=== PATIENT | male | born 1960 | race Caucasian/White ===

== ENCOUNTER → 2023-06-07 11:08 | Outpatient (REF) | payer BC, SELFPAY | LOC: DHCBC/DCA 11:08 | PROVIDERS: ATTENDING PHYSICIAN Internal Medicine; FAMILY PHYSICIAN Family Medicine | DX: R94.31 Abnormal electrocardiogram [ECG] [EKG] (principal) | CPT/HCPCS: 78452; 93017; A9500; J2785 ==

== ENCOUNTER → 2023-06-13 13:23 | Outpatient (REF) | payer BC, SELFPAY | LOC: DHCBC MAIN 13:23 | PROVIDERS: ATTENDING PHYSICIAN Internal Medicine; FAMILY PHYSICIAN Family Medicine | DX: R01.1 Cardiac murmur, unspecified (principal) | CPT/HCPCS: 93306 ==

== ENCOUNTER → 2023-08-09 10:42 | Outpatient (REF) | payer BC, SELFPAY | LOC: RAD 10:42 | PROVIDERS: ATTENDING PHYSICIAN Internal Medicine; FAMILY PHYSICIAN Family Medicine | DX: F17.210 Nicotine dependence, cigarettes, uncomplicated (principal) | CPT/HCPCS: 76770 ==

== ENCOUNTER → 2023-09-05 07:28 | Outpatient (REF) | payer BC, SELFPAY | LOC: EMG 07:28 | PROVIDERS: ATTENDING PHYSICIAN Physical Medicine & Rehabilitation | DX: R29.898 Other symptoms and signs involving the musculoskeletal system (principal); R20.0 Anesthesia of skin | CPT/HCPCS: 95886; 95909 ==

== ENCOUNTER 2024-03-21 06:25 | Inpatient (IN) | payer BC, SELFPAY ==
[2024-03-19 14:14] VITALS: BMI 29.6
[2024-03-19 15:23] LABS: Hematocrit 43.2 % (39.0-52.0); Hemoglobin 14.9 g/dL (13.0-18.0); Mean Corp Hgb Conc. 34.5 g/dL (33.0-37.0); Mean Corpuscular Hgb 33.9 pg (27.0-31.0); Mean Corpuscular Volume 98.2 fL (80.0-94.0); Mean Platelet Volume 9.8 fL (7.4-10.4); Platelet Count 222 10^3/uL (130-400); Red Cell Dist. Width 12.1 % (11.5-14.5); White Blood Cell Count 9.8 10^3/uL (4.8-10.8)
[2024-03-19 15:24] LABS: ALT (SGPT) 63 U/L (0-50); AST (SGOT) 87 U/L (17-59); Albumin 4.7 g/dl (3.5-5.0); Alkaline Phosphatase 83 U/L (38-126); Blood Urea Nitrogen 11 mg/dl (9-20); Calcium 9.4 mg/dl (8.4-10.2); Carbon Dioxide 28 mmol/L (22-30); Chloride 100 mmol/L (98-107); Estimated Creatinine Clearance 105 ml/min; Glucose 96 mg/dl (70-99); Potassium 4.5 mmol/L (3.5-5.1); Sodium 137 mmol/L (135-145); Total Bilirubin 0.5 mg/dl (0.2-1.3); Total Protein 7.2 g/dl (6.3-8.2); eGFR > 60.00
[2024-03-21] VITALS (14 sets, daily range): BP systolic 98–171; BP diastolic 65–97; BMI 29.6
[2024-03-21] MEDS: CELEBREX 200 MG PO (07:05)
[2024-03-21] MEDS: SKELAXIN 800 MG PO ×3 (07:05→23:26)
[2024-03-21] MEDS: TYLENOL 1000 MG PO ×3 (07:06→23:36)
[2024-03-21] MEDS: LYRICA 150 MG PO (07:06)
[2024-03-21] MEDS: NORMOSOL-R/PLASMALYTE-A 1000 IV ×4 (07:06→20:00)
--- NOTE | 2024-03-21 07:55 | W.DS.TRANS ---
Addendum entered and electronically signed by Marycruz Guevara PA-C 03/22/24 10:06:
INSTRUCTED TO STOP TYLENOL DUE TO ELEVATED TRANSAMINASE
Original Note:
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
-
Discharge Instructions:
Sleep Apnea Risk Intermediate
Discharge Diagnosis/Procedures ACDF 03/21/24
Diet As tolerated
Activity No strenuous activity
Driving Restrictions No driving
Instructions:
Stand-Alone Forms: [facility] D/C Inst.
Changes to Home Medications: Yes
Discharge Medications:
DC Medications w/original date entered in [employer]
levothyroxine 175 mcg tablet (Synthroid) 175 mcg PO DAILY 03/16/24
multivitamin 1 tab PO DAILY 03/16/24
rosuvastatin 10 mg tablet 10 mg PO DAILY 03/16/24
aspirin 81 mg tablet,delayed release 81 mg PO DAILY 03/19/24
cholecalciferol (vitamin D3) 25 mcg (1,000 unit) capsule (Vitamin D3) 25 mcg PO DAILY 03/19/24
cyanocobalamin (vitamin B-12) 500 mcg tablet (Vitamin B-12) 500 mcg PO DAILY 03/19/24
lisinopril 20 mg tablet 20 mg PO DAILY 03/19/24
omega 8-gbs-cwa-fish oil 1,000 mg (120 mg-180 mg) capsule (Fish Oil) 2 cap PO DAILY 03/19/24
Saccharomyces boulardii 250 mg capsule (Florastor) 250 mg PO BID #1 cap 03/21/24
acetaminophen 325 mg tablet (Tylenol) 650 mg (2 x 325 mg) PO QID #1 tab 03/21/24
cephalexin 500 mg capsule 500 mg PO QID infection prevention #20 caps 03/21/24
cyclobenzaprine 5 mg tablet 5 mg PO BID muscle pain/sleep #30 tabs 03/21/24
dexamethasone 4 mg tablet 4 mg PO BID inflammation #6 tabs 03/21/24
diphenhydramine 25 mg-acetaminophen 500 mg tablet (Tylenol PM Extra Strength) 1 tab PO HS PRN sleep 03/21/24
docusate sodium 100 mg capsule (Colace) 100 mg PO BID stool softner #1 cap 03/21/24
gabapentin 300 mg capsule 300 mg PO HS sleep/pain #10 caps 03/21/24
magnesium hydroxide 400 mg/5 mL oral suspension (Milk of Magnesia) 30 ml PO HS PRN Constipation #1 mL 03/21/24
ondansetron 4 mg disintegrating tablet 4 mg PO Q6H PRN n/v #20 tabs 03/21/24
oxycodone 5 mg tablet 5 mg PO Q6H PRN 1 tab moderate pain, 2 tabs severe pain #30 tabs 03/21/24
sennosides 8.6 mg tablet (Senokot) 17.2 mg (2 x 8.6 mg) PO BID laxative #2 tabs 03/21/24
Home Medication Changes
cephalexin 500 mg capsule 500 mg PO QID infection prevention #20 caps 03/21/24
cyclobenzaprine 5 mg tablet 5 mg PO BID muscle pain/sleep #30 tabs 03/21/24
dexamethasone 4 mg tablet 4 mg PO BID inflammation #6 tabs 03/21/24
diphenhydramine 25 mg-acetaminophen 500 mg tablet (Tylenol PM Extra Strength) 1 tab PO HS PRN sleep 03/21/24
docusate sodium 100 mg capsule (Colace) 100 mg PO BID stool softner #1 cap 03/21/24
gabapentin 300 mg capsule 300 mg PO HS sleep/pain #10 caps 03/21/24
magnesium hydroxide 400 mg/5 mL oral suspension (Milk of Magnesia) 30 ml PO HS PRN Constipation #1 mL 03/21/24
ondansetron 4 mg disintegrating tablet 4 mg PO Q6H PRN n/v #20 tabs 03/21/24
oxycodone 5 mg tablet 5 mg PO Q6H PRN 1 tab moderate pain, 2 tabs severe pain #30 tabs 03/21/24
sennosides 8.6 mg tablet (Senokot) 17.2 mg (2 x 8.6 mg) PO BID laxative #2 tabs 03/21/24
Pending Results: No
[2024-03-21] MEDS: ANCEF IV (08:37)
[2024-03-21] MEDS: DILAUDID 0.5 MG IV ×2 (10:38→10:45)
--- NOTE | 2024-03-21 14:35 | PTCARENOTE ---
Patient admitted from [facility] C4-C7 ACDF.The patient is alert and oriented x3.He reports his pain at a 5 out of 10.The dressing on his right neck is intact without any drainage.neurovascular assessment is within normal limits and ongoing.Vital
signs are stable.The patient is in his bed with the call brantley in reach.
[2024-03-21] MEDS: COLACE 100 MG PO ×2 (16:14→20:05)
[2024-03-21] MEDS: CRESTOR 10 MG PO (16:14)
[2024-03-21] MEDS: ULTRAM 50 MG PO ×3 (16:14→23:28)
[2024-03-21] MEDS: SENOKOT 17.2 MG PO ×2 (16:14→20:05)
[2024-03-21] MEDS: ANCEF 5 IV ×2 (16:15→23:26)
[2024-03-21] MEDS: LYRICA 75 MG PO (20:00)
[2024-03-22 03:00] VITALS: BP 141/79
[2024-03-22] MEDS: ULTRAM 50 MG PO ×2 (03:18→08:03)
[2024-03-22] MEDS: NORMOSOL-R/PLASMALYTE-A 1000 IV (03:20)
[2024-03-22] MEDS: SYNTHROID 175 MCG PO (05:04)
[2024-03-22] MEDS: TYLENOL 1000 MG PO (05:42)
[2024-03-22 07:28] VITALS: BP 151/87
--- NOTE | 2024-03-22 07:49 | W.DS.TRANS ---
DC Summary - [employer]
-
Discharge Instructions:
Sleep Apnea Risk Intermediate
Discharge Diagnosis/Procedures ACDF 03/21/24
Diet As tolerated
Activity No strenuous activity
Driving Restrictions No driving
Instructions:
Stand-Alone Forms: [facility] Cervical D/C Inst.
Changes to Home Medications: No
Discharge Medications:
DC Medications w/original date entered in [email or web address]
levothyroxine 175 mcg tablet (Synthroid) 175 mcg PO DAILY 03/16/24
multivitamin 1 tab PO DAILY 03/16/24
rosuvastatin 10 mg tablet 10 mg PO DAILY 03/16/24
aspirin 81 mg tablet,delayed release 81 mg PO DAILY 03/19/24
cholecalciferol (vitamin D3) 25 mcg (1,000 unit) capsule (Vitamin D3) 25 mcg PO DAILY 03/19/24
cyanocobalamin (vitamin B-12) 500 mcg tablet (Vitamin B-12) 500 mcg PO DAILY 03/19/24
lisinopril 20 mg tablet 20 mg PO DAILY 03/19/24
omega 8-hnw-kpd-fish oil 1,000 mg (120 mg-180 mg) capsule (Fish Oil) 2 cap PO DAILY 03/19/24
Saccharomyces boulardii 250 mg capsule (Florastor) 250 mg PO BID #1 cap 03/21/24
acetaminophen 325 mg tablet (Tylenol) 650 mg (2 x 325 mg) PO QID #1 tab 03/21/24
cephalexin 500 mg capsule 500 mg PO QID infection prevention #20 caps 03/21/24
cyclobenzaprine 5 mg tablet 5 mg PO BID muscle pain/sleep #30 tabs 03/21/24
dexamethasone 4 mg tablet 4 mg PO BID inflammation #6 tabs 03/21/24
diphenhydramine 25 mg-acetaminophen 500 mg tablet (Tylenol PM Extra Strength) 1 tab PO HS PRN sleep 03/21/24
docusate sodium 100 mg capsule (Colace) 100 mg PO BID stool softner #1 cap 03/21/24
gabapentin 300 mg capsule 300 mg PO HS sleep/pain #10 caps 03/21/24
magnesium hydroxide 400 mg/5 mL oral suspension (Milk of Magnesia) 30 ml PO HS PRN Constipation #1 mL 03/21/24
ondansetron 4 mg disintegrating tablet 4 mg PO Q6H PRN n/v #20 tabs 03/21/24
oxycodone 5 mg tablet 5 mg PO Q6H PRN 1 tab moderate pain, 2 tabs severe pain #30 tabs 03/21/24
sennosides 8.6 mg tablet (Senokot) 17.2 mg (2 x 8.6 mg) PO BID laxative #2 tabs 03/21/24
Home Medication Changes
Pending Results: No
--- NOTE | 2024-03-22 07:49 | W.PN.SP ---
Today's Communication / Plan
-
s/p acdf
PT
D/c
Subjective / Objective
Subjective Data
Pt overall doing as expected
A little hoarse
DEnies weakness
Objective Data
Vital Signs
Temp Pulse Resp BP Pulse Ox
97.6 F 74 12 141/79 95
03/22/24 03:00 03/22/24 03:00 03/22/24 03:00 03/22/24 03:00 03/22/24 03:00
Intake and Output
03/21/24 03/22/24 03/23/24
06:59 06:59 06:59
Intake Total 2600 / 2600
Output Total 1200 / 1200
Balance 1400 / 1400
Intake:
Oral fluids 900 / 900
IV fluids (Total) 1700 / 1700
Output:
Urine, Voided 1200 / 1200
Lab Data
03/19/24 13:50
03/19/24 13:50
Physical Exam
-
MOving both UE with good strength
[2024-03-22] MEDS: CRESTOR 10 MG PO (08:02)
[2024-03-22] MEDS: COLACE 100 MG PO (08:02)
[2024-03-22] MEDS: SENOKOT 17.2 MG PO (08:02)
[2024-03-22] MEDS: SKELAXIN 800 MG PO (08:02)
[2024-03-22] MEDS: LYRICA 75 MG PO (08:03)
--- NOTE | 2024-03-22 10:02 | W.PN.ORTHO ---
Today's Communication / Plan
-
d/c
Assessment
.
Dressing:
Clean, dry and intact.
Plan
.
Surgery / Date: C4-7 ACDF
Activity:
Out of bed.
PT/OT
Discharge Plan: Home
Subjective
.
.:
Patient resting comfortably.
Vital Signs and Labs
.
Vital Signs and Labs:
Lab Results
03/19/24 13:50
03/19/24 13:50
Temp Pulse Resp BP Pulse Ox
97.6 F 72 14 151/87 96
03/22/24 07:28 03/22/24 07:28 03/22/24 07:28 03/22/24 08:03 03/22/24 09:45
Physical Exam
-
HEENT: No pallor, cyanosis, or jaundice. Throat clear.
NECK: Supple. No JVD.
RESPIRATORY: Lungs clear to auscultation.
CVS: S1, S2 normal. RRR.� No murmur, rub or gallop.
ABDOMEN: Soft, non-tender. No distension. BS+/normal.
EXTREMITIES: strength equal, no calf pain with palpation
DETENTION WORKER: AOx3. No focal deficits. requirements manager grossly intact
--- NOTE | 2024-03-22 10:24 | CM ---
Met with pt at bedside
Pt reports he lives with his in a 1 story home; 3 steps to enter, FF set-up
Independent at baseline, employed , drives
DME - oxygen - uses for cluster Headaches - unsure of supplier
SNF/HH - denies past hx
Has ride at discharge
PCP - Antonio Kay
Pharm - [facility]
Plan - anticipate home no needs
[2024-03-22 10:45] VITALS: BP 173/91; PULSE 86; O2SAT 97
[2024-03-22 10:59] VITALS: BP 152/85
== END 2024-03-22 12:41 | disposition home or self-care (01) | DRG 473 ==
LOC: 2 SOUTH 06:25
PROVIDERS: ADMITTING PHYSICIAN Orthopaedic Surgery Orthopaedic Surgery of the Spine; FAMILY PHYSICIAN Family Medicine
PROC: 01N10ZZ Release Cervical Nerve, Open Approach (ICD-10-PCS; 2024-03-21)
PROC: 0RB30ZZ Excision of Cervical Vertebral Disc, Open Approach (ICD-10-PCS; 2024-03-21)
PROC: 0RG20A0 Fusion of 2 or more Cervical Vertebral Joints with Interbody Fusion Device, Anterior Approach, Anterior Column, Open Approach (ICD-10-PCS; 2024-03-21)
DX: M48.02 Spinal stenosis, cervical region (principal); M50.121 Cervical disc disorder at C4-C5 level with radiculopathy; E78.2 Mixed hyperlipidemia; I35.8 Other nonrheumatic aortic valve disorders; E03.9 Hypothyroidism, unspecified; I10 Essential (primary) hypertension; K21.9 Gastro-esophageal reflux disease without esophagitis; R73.03 Prediabetes; E66.09 Other obesity due to excess calories; Z87.891 Personal history of nicotine dependence; Z79.82 Long term (current) use of aspirin; Z79.890 Hormone replacement therapy; Z68.29 Body mass index [BMI] 29.0-29.9, adult
CPT/HCPCS: 36415; 72020; 80053; 85027; 87070; 93005; 97162; 97166; 97530; 97535; C1713

== ENCOUNTER → 2024-08-13 14:00 | Outpatient (REF) | payer OTHER, SELFPAY | LOC: HWRAD 14:00 | PROVIDERS: ATTENDING PHYSICIAN Family Medicine | DX: Z87.891 Personal history of nicotine dependence (principal) | CPT/HCPCS: 71271 ==

== ENCOUNTER → 2025-02-04 12:38 | Outpatient (REF) | payer OTHER, SELFPAY | LOC: HWRAD 12:38 | PROVIDERS: ATTENDING PHYSICIAN Family Medicine | DX: R91.8 Other nonspecific abnormal finding of lung field (principal) | CPT/HCPCS: 71250 ==

== ENCOUNTER 2025-02-16 05:25 | Emergency (ER) | payer OTHER, MEDICARE, SELFPAY ==
[2025-02-16 05:43] VITALS: BP 180/106
[2025-02-16 06:13] LABS: Hematocrit 41.6 % (39.0-52.0); Hemoglobin 14.4 g/dL (13.0-18.0); Mean Corp Hgb Conc. 34.6 g/dL (33.0-37.0); Mean Corpuscular Volume 97.7 fL (80.0-94.0); Nucleated Red Blood Cells % 0 % (-); Platelet Count 146 10^3/uL (130-400); Red Cell Dist. Width 13.1 % (11.5-14.5)
[2025-02-16 06:26] LABS: ALT (SGPT) 24 U/L (0-50); AST (SGOT) 43 U/L (17-59); Albumin 4.5 g/dl (3.5-5.0); Alkaline Phosphatase 88 U/L (38-126); Blood Urea Nitrogen 8 mg/dl (9-20); Calcium 9.1 mg/dl (8.4-10.2); Carbon Dioxide 25 mmol/L (22-30); Chloride 101 mmol/L (98-107); Glucose 158 mg/dl (70-99); Potassium 4.1 mmol/L (3.5-5.1); Sodium 134 mmol/L (135-145); Total Protein 7.3 g/dl (6.3-8.2); eGFR > 60.00
[2025-02-16 06:35] LABS: COVID-19 Antigen Negative (Negative)
[2025-02-16 06:36] LABS: Troponin I 0.012 ng/ml
[2025-02-16 08:37] VITALS: BMI 29.3
--- NOTE | 2025-02-16 08:37 | ED.GENMED ---
History of Present Illness
General
Chief Complaint: Cold/Flu/URI Symptoms
Time Seen by Provider: 02/16/25 08:27
History of Present Illness
History of Present Illness:
64-year-old male with history of hypertension and hyperlipidemia presents to the emergency department for evaluation of cough, congestion, and fever for the past 3 days. Denies chest pain or shortness of breath. Cough is generally dry. No history
of lung disease. Non-smoker.
Review of Systems
Review of Systems
Allergies reviewed?: Yes
All Other Systems: ROS reviewed and negative except as documented in HPI and ROS
Phy Exam
Physical Exam
Physical Exam:
GEN: Well appearing, NAD, WDWN
HEENT: Oral mucosa moist, no scleral icterus
Cardiac: Regular rate and rhythm, no murmur
Lung: No respiratory distress, no tachypnea, lungs clear to auscultation
MSK: No gross deformity or injuries
Skin: Good color, no pallor or jaundice, no rashes
Neuro: AO x3, moves all extremities freely
Psych: Calm, cooperative
Course
Orders/Labs/Results
Orders:
Orders
02/16/25 05:51
Electrocardiogram (*1) Urgent
Reason for Study: Other
Other Reason for Exam: Respiratory Distress
Cardiac Monitoring- Treatment ONCE
EKG- Treatment ONCE
IV Insert/Care/Rem.- Treatment PRN
CR Chest - 2 Views Urgent
Comment:
Reason For Exam: respiratory distress
O2 Therapy [RESP] Urgent
Titrate/Wean O2 to maintain O2 sat greater than (%): 93
Special Instructions: TO MAINTAIN CONTINUOUS O2 SATS >/= 93%
Pulse Ox/cont/shift [RESP] Urgent
Quantity: 1
Special Instructions: continuous pulse ox
02/16/25 06:03
COVID-19 Antigen Urgent
Source: Nasal Swab
Complete Blood Count/With Diff Urgent
Comprehensive Metabolic Panel Urgent
NT-proBNP Urgent
Troponin I Urgent
Influenza A+B Rapid Molecular Urgent
NIRAV Source: Nasal Swab
Specimen Description:
Abnormal Lab Results
02/16/25
06:03
RBC 4.26 L 10^6/uL
(4.70-6.10)
MCV 97.7 H fL
(80.0-94.0)
MCH 33.8 H pg
(27.0-31.0)
Absolute Lymphs (auto) 0.6 L 10^3/uL
(1.2-3.4)
Absolute Monos (auto) 0.7 H 10^3/uL
(0.1-0.6)
Lymphocytes % 10.3 L %
(20.5-51.1)
Monocytes % 12.7 H %
(1.7-9.3)
Sodium 134 L mmol/L
(135-145)
BUN 8 L mg/dl
(9-20)
Glucose 158 H mg/dl
(70-99)
02/16/25 06:03
02/16/25 06:03
Vital Signs
Initial and Last Documented VS:
Initial Vital Signs
Temp Pulse Resp BP Pulse Ox
98.7 F 92 20 180/106 93
02/16/25 05:43 02/16/25 05:43 02/16/25 05:43 02/16/25 05:43 02/16/25 05:43
Last Documented Vital Signs
Temp Pulse Resp BP Pulse Ox
98.7 F 92 20 180/106 93
02/16/25 05:43 02/16/25 05:43 02/16/25 05:43 02/16/25 05:43 02/16/25 08:39
MDM/Problems Addressed
MDM/Problems Addressed:
Patient vital signs are normal. He is positive for influenza A, chest x-ray without evidence of infiltrate. Labs are reassuring. Outside the reasonable treatment window for antivirals and thus will recommend supportive care, ED return parameters
discussed
*Pulse Oximetry
SaO2: 93
Oxygen Mode of Delivery: Room air
Patient hypoxic: no
*Critical Care Note
Total Time (30-74mins, 75-104mins- exclusive of procedures): Not Applicable
ED Attending Note
-
Portions of this chart may have been created with voice recognition software.� Occasional wrong word or��sound alike� substitutions may have occurred due to the inherent limitations of voice recognition software.
Discharge Plan
Departure
Patient Disposition: Home (Routine Discharge)
Date of Disposition: 02/16/25
Time of Disposition: 08:38
Patient with high blood pressure during this ER visit?: No
Discharge Problem:
Influenza A
Instructions: Flu in adults - ED (DC)
Prescriptions:
New
codeine-guaifenesin 10-100 mg/5 mL liquid
5 - 10 ml PO Q6H PRN (Reason: Cough) Qty: 120 0RF
No Action
multivitamin Tablet
1 tab PO DAILY
rosuvastatin 10 mg Tablet
10 mg PO DAILY
levothyroxine [Synthroid] 175 mcg Tablet
175 mcg PO DAILY
lisinopril 20 mg Tablet
20 mg PO DAILY
aspirin 81 mg Tablet,Delayed Release (Dr/Ec)
81 mg PO DAILY
cyanocobalamin (vitamin B-12) [Vitamin B-12] 500 mcg Tablet
500 mcg PO DAILY
cholecalciferol (vitamin D3) [Vitamin D3] 25 mcg (1,000 unit) Capsule
25 mcg PO DAILY
omega 8-yph-koz-fish oil [Fish Oil] 1,000 (120-180) mg Capsule
2 cap PO DAILY
diphenhydramine-acetaminophen [Tylenol PM Extra Strength] 25-500 mg Tablet
1 tab PO HS PRN (Reason: sleep)
sennosides [Senokot] 8.6 mg tablet
17.2 mg PO BID Qty: 2 0RF
magnesium hydroxide [Milk of Magnesia] 400 mg/5 mL suspension
30 ml PO HS PRN (Reason: Constipation) Qty: 1 0RF
cephalexin 500 mg capsule
500 mg PO QID Qty: 20 0RF
dexamethasone 4 mg tablet
4 mg PO BID Qty: 6 0RF
Rx Instructions:
take with food
post-op use only
docusate sodium [Colace] 100 mg capsule
100 mg PO BID Qty: 1 0RF
gabapentin 300 mg capsule
300 mg PO HS Qty: 10 0RF
ondansetron 4 mg tablet,disintegrating
4 mg PO Q6H PRN (Reason: n/v) Qty: 20 0RF
Rx Instructions:
take 1/2h b/f pain med if recurrent nausea
allow to dissolve in mouth w/o water
oxycodone 5 mg tablet
5 mg PO Q6H PRN (Reason: 1 tab moderate pain, 2 tabs severe pain) Qty: 30 0RF
Rx Instructions:
Ongoing therapy
cyclobenzaprine 5 mg tablet
5 mg PO BID Qty: 30 0RF
Saccharomyces boulardii [Florastor] 250 mg capsule
250 mg PO BID Qty: 1 0RF
Referrals:
Antonio Kay DO [Family Provider, Family Practice]
Stand Alone Forms: Return to Work
Interventions
Interventions:
*General Assessment Last Done: 02/16/25 05:43
*Neglect/Abuse Screening Last Done: 02/16/25 05:43
*ED COVID-19 Vaccine History Last Done: 02/16/25 05:43
*ED Influenza Vaccine History Last Done: 02/16/25 05:43
[facility] Fall Risk Assessment Tool Last Done: 02/16/25 08:37
*Risk Screen - Suicide (C-SSRS) Last Done: 02/16/25 08:30
*Nursing Disposition Last Done: 02/16/25 08:30
ED- Pulmonary Assessment Last Done: 02/16/25 08:37
Discharge Date and Time
Discharge Date/Time: 02/16/25 08:50
Print Language: WOLOF
== END 2025-02-16 08:50 | disposition home or self-care (01) ==
LOC: EMR 05:25
PROVIDERS: Emergency Medicine; EMERGENCY PHYSICIAN Emergency Medicine; FAMILY PHYSICIAN Family Medicine
DX: J10.1 Influenza due to other identified influenza virus with other respiratory manifestations (principal); I10 Essential (primary) hypertension; E78.5 Hyperlipidemia, unspecified; Z11.52 Encounter for screening for COVID-19
CPT/HCPCS: 99285; 71046; 80053; 83880; 84484; 85025; 87502; 87811; 93005